=== PATIENT | male | born 2000 | race Caucasian/White ===

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

== ENCOUNTER → 2024-12-13 | Outpatient (CLI) | payer OTHER | LOC: M PLAIMG 14:52 | PROVIDERS: ATTEND Physician Assistant | DX: M25.571 Pain in right ankle and joints of right foot (principal) ==